=== PATIENT | female | born 1985 | race Caucasian/White ===

== ENCOUNTER 2018-04-15 15:54 | Emergency (ER) | payer SELFPAY ==
[2018-04-15 16:00] VITALS: BP 125/78
--- NOTE | 2018-04-15 16:33 | ER Document Report ---
HPI - HPI Patient complains to provider of: toothache Onset: This afternoon Pain Level: 5 Context: 32 yo female c/o broen tooth today while eating pizza, top right bicuspid. Associated Symptoms: None Exacerbated by: Denies Relieved by: Denies - ROS ROS below otherwise negative: Yes Systems Reviewed and Negative: Yes All other systems reviewed and negative - REPRODUCTIVE Reproductive: DENIES: : Past Medical History - General Information source: Patient - Social History Smoking Status: Current Every Day Smoker Frequency of alcohol use: None Drug Abuse: None Lives with: Family Family History: Reviewed & Not Pertinent - Medical History Medical History: Negative Past Surgical History: Reports: Hx Orthopedic Surgery - right hand, right shoulder - Immunizations Hx Diphtheria, Pertussis, Tetanus Vaccination: Yes Vertical Provider Document - CONSTITUTIONAL Agree With Documented VS: Yes Exam Limitations: No Limitations General Appearance: No Apparent Distress - INFECTION CONTROL TRAVEL OUTSIDE OF THE [place] IN LAST 30 DAYS: No - HEENT Notes: partial broken top bicuspid, minimal ginival inflammation, no abscess Course - Vital Signs Vital signs: Temp Pulse Resp BP Pulse Ox 97.9 F 90 16 125/78 99 04/15/18 15:59 04/15/18 15:59 04/15/18 15:59 04/15/18 15:59 04/15/18 15:59 Discharge - Discharge Clinical Impression: Dental pain and decay Condition: Good Disposition: HOME, SELF-CARE Instructions: Amoxicillin ([facility]), Dentist, Toothache ([facility]), Topical Lidocaine ( [facility]) Additional Instructions: Lidocaine to numb the area Penicillin Motrin Tylenol Return to the emergency room any concerns Prescriptions: Ibuprofen [Motrin 800 mg Tablet] 800 mg PO Q8HP PRN #30 tablet PRN Reason: Amoxicillin Trihydrate [Amoxil 500 mg Capsule] 500 mg PO QID #30 cap Referrals: LOCALMD,NO [NO LOCAL MD] - Follow up as needed
[2018-04-15] MEDS ORDERED: ACETAMINOPHEN 325 MG TABLET PO ONE (16:34)
[2018-04-15] MEDS ORDERED: LIDOCAINE 2% VISCOUS SOLN 20 ML UDCUP PO ONE (16:34)
[2018-04-15] MEDS ORDERED: IBUPROFEN 800 MG TABLET PO ONE (16:34)
== END 2018-04-15 17:18 | disposition home or self-care (01) ==
LOC: ER 15:54
DX: K02.9 Dental caries, unspecified (principal); F17.200 Nicotine dependence, unspecified, uncomplicated
CPT/HCPCS: 99282; J3490

== ENCOUNTER 2018-05-05 09:57 | Emergency (ER) | payer SELFPAY ==
--- NOTE | 2018-05-05 10:18 | ER Document Report ---
ED Medical Screen (RME) - General Chief Complaint: Vaginal Bleeding Stated Complaint: VAGINAL BLEEDING Time Seen by Provider: 05/05/18 10:15 Notes: RAPID MEDICAL EVALUATION DISCLOSURE I have seen this patient as part of a Rapid Medical Evaluation and, if applicable, placed any initially appropriate orders. The patient will be seen and fully evaluated, including a full history and physical exam, by a provider ( in Main ED or Fast Track) when a room becomes available. 32-year-old female here with complaints of vaginal bleeding and lower abdominal cramping over the past few days. She has also had some nausea but no dysuria frequency hesitancy vaginal discharge. She states there is a very good possibility she could be . EXAM Minimal suprapubic and RLQ TTP TRAVEL OUTSIDE OF THE [place] IN LAST 30 DAYS: No - Related Data Allergies/Adverse Reactions: No Known Allergies Allergy (Verified 05/05/18 09:58) Past Medical History Renal/ Medical History: Denies: Hx Peritoneal Dialysis Past Surgical History: Reports: Hx Orthopedic Surgery - right hand, right shoulder - Immunizations Hx Diphtheria, Pertussis, Tetanus Vaccination: Yes Physical Exam - Vital signs Vitals: Temp Pulse Resp BP Pulse Ox 98.5 F 97 16 128/81 H 99 05/05/18 10:08 05/05/18 10:08 05/05/18 10:08 05/05/18 10:08 05/05/18 10:08 Course - Vital Signs Vital signs: Temp Pulse Resp BP Pulse Ox 98.5 F 97 16 128/81 H 99 05/05/18 10:08 05/05/18 10:08 05/05/18 10:08 05/05/18 10:08 05/05/18 10:08
[2018-05-05 11:06] LABS: ABSOLUTE EOSINOPHILS # (AUTO) 0.1 10^3/uL (0.0-0.6); ABSOLUTE LYMPHOCYTES (AUTO) 3.4 10^3/uL (0.5-4.7); ABSOLUTE MONOCYTES (AUTO) 0.6 10^3/uL (0.1-1.4); ABSOLUTE NEUT (AUTO) 7.8 10^3/uL (1.7-8.2); BASOPHILS % (AUTO) 0.4 % (0-2); EOSINOPHILS % (AUTO) 0.9 % (0-6); HEMATOCRIT 45.1 % (36.0-47.0); HEMOGLOBIN 15.4 g/dL (12.0-15.5); LYMPHOCYTES % (AUTO) 28.7 % (13-45); MEAN CORPUSCULAR HEMOGLOBIN 31.4 pg (27.0-33.4); MEAN CORPUSCULAR HGB CONC 34.1 g/dL (32.0-36.0); MEAN CORPUSCULAR VOLUME 92 fl (80-97); MONOCYTES % (AUTO) 4.7 % (3-13); PLATELET COUNT 327 10^3/uL (150-450); RED CELL DISTRIBUTION WIDTH 13.1 % (11.5-14.0); SEGMENTED NEUTROPHILS % (AUTO) 65.3 % (42-78); TOTAL CELLS COUNTED % (AUTO) 100 %; WHITE BLOOD COUNT 11.9 10^3/uL (4.0-10.5)
--- NOTE | 2018-05-05 11:07 | ER Document Report ---
ED GI/ - General Chief Complaint: Vaginal Bleeding Stated Complaint: VAGINAL BLEEDING Time Seen by Provider: 05/05/18 10:15 Mode of Arrival: Ambulatory Information source: Patient Notes: Vaginal bleeding since April 20. She thought it was a normal menses when it started but it is persisted for this long and she is concerned that she might be . She does not do the home test. No vaginal discharge or odor, no history of STI's, no new sexual partner. G0. No dysuria frequency or urgency. No fever or chills. No pain at this time. TRAVEL OUTSIDE OF THE [place] IN LAST 30 DAYS: No - Related Data Allergies/Adverse Reactions: No Known Allergies Allergy (Verified 05/05/18 09:58) Past Medical History - General Information source: Patient - Social History Smoking Status: Current Every Day Smoker Chew tobacco use (# tins/day): No Frequency of alcohol use: None Drug Abuse: None Lives with: Spouse/Significant other Family History: Reviewed & Not Pertinent Patient has suicidal ideation: No Patient has homicidal ideation: No Renal/ Medical History: Denies: Hx Peritoneal Dialysis Past Surgical History: Reports: Hx Orthopedic Surgery - right hand, right shoulder - Immunizations Hx Diphtheria, Pertussis, Tetanus Vaccination: Yes Review of Systems - Review of Systems Constitutional: No symptoms reported EENT: No symptoms reported Cardiovascular: No symptoms reported Respiratory: No symptoms reported Gastrointestinal: No symptoms reported Genitourinary: No symptoms reported Female Genitourinary: See HPI Musculoskeletal: No symptoms reported Skin: No symptoms reported Hematologic/Lymphatic: No symptoms reported Neurological/Psychological: No symptoms reported Physical Exam - Vital signs Vitals: Temp Pulse Resp BP Pulse Ox 98.5 F 97 16 128/81 H 99 05/05/18 10:08 05/05/18 10:08 05/05/18 10:08 05/05/18 10:08 05/05/18 10:08 Interpretation: Normal - General General appearance: Appears well, Alert - HEENT Head: Normocephalic, Atraumatic Eyes: Normal Conjunctiva: Normal Pupils: PERRL - Respiratory Respiratory status: No respiratory distress Chest status: Nontender Breath sounds: Normal Chest palpation: Normal - Cardiovascular Rhythm: Regular Heart sounds: Normal auscultation Murmur: No - Abdominal Inspection: Normal Distension: No distension Bowel sounds: Normal Tenderness: Nontender. No: Tender Organomegaly: No organomegaly - Genitourinary External exam: Normal Speculum exam: Cervix closed Vaginal bleeding: Mild - Old blood Bimanuel exam: No: Cervical motion tender, Adnexal tenderness Notes: smells like BV - Back Back: Normal, Nontender. No: CVA tenderness - Extremities General upper extremity: Normal inspection, Nontender, Normal color, Normal ROM , Normal temperature General lower extremity: Normal inspection, Nontender, Normal color, Normal ROM , Normal temperature, Normal weight bearing. No: Ketan's sign - Neurological Neuro grossly intact: Yes Cognition: Normal Orientation: AAOx4 Custer Coma Scale Eye Opening: Spontaneous Alena Coma Scale Verbal: Oriented Custer Coma Scale Motor: Obeys Commands Alena Coma Scale Total: 15 Speech: Normal Motor strength normal: LUE, RUE, LLE, RLE Sensory: Normal - Psychological Associated symptoms: Normal affect, Normal mood - Skin Skin Temperature: Warm Skin Moisture: Dry Skin Color: Normal Skin irregularity: negative: Rash Course - Re-evaluation Re-evalutation: 05/05/18 13:[address] Brooks is consult for the bacterial vaginosis and he said use Clindagel, spoken with the patient about all of the lab tests and she understands to get her quantitative test redrawn in 2 days and to return for any worsening of the symptoms. Blood type is O+, no urinary tract infection, CBC is normal, quantitative is 274, bacterial vaginosis on the wet prep, gonorrhea and chlamydia is negative. Her sounds does not show an IUP and bilateral ovarian cysts which are complex and the patient understands this. 05/05/18 13:32 05/05/18 13:32 - Vital Signs Vital signs: Temp Pulse Resp BP Pulse Ox 97.7 F 78 16 118/73 98 05/05/18 13:39 05/05/18 13:39 05/05/18 13:39 05/05/18 13:39 05/05/18 13:39 - Laboratory Result Diagrams: 05/05/18 10:40 05/05/18 10:40 Laboratory results interpreted by me: 05/05/18 05/05/18 05/05/18 10:40 10:40 10:40 WBC 11.9 H BUN 6 L Beta HCG, Quant Urine Blood LARGE H Urine HCG, Qual POSITIVE H 05/05/18 10:40 WBC BUN Beta HCG, Quant 274.15 H Urine Blood Urine HCG, Qual Discharge - Discharge Clinical Impression: Early , Vaginal bleeding, Bilateral ovarian cysts, Bacterial vaginosis Condition: Good Disposition: HOME, SELF-CARE Instructions: Bleeding During Early ([facility]), Clindamycin ([facility]), [facility], Ovarian Cyst ([facility]), Vaginosis, Bacterial ([facility]), [facility] ([facility]) Additional Instructions: You will need to get her blood redrawn in 48 hours. If the hCG level is going up you are still , if the hCG is going down this bleeding is a miscarriage. See the health department or [facility] for follow-up Return to the emergency room for increased cramping , fever, pain or any concerns. Prescriptions: Clindamycin Phosphate [Clindamax Cream] 1 applic VG QHS 7 Days #1 tub Forms: Follow-Up Laboratory Testing Referrals: REGINALD BROOKS MD [ACTIVE STAFF] - Follow up as needed
[2018-05-05 11:15] LABS: APPEARANCE,URINE CLEAR; BILIRUBIN,URINE NEGATIVE (NEGATIVE); COLOR,URINE STRAW; GLUCOSE, URINE NEGATIVE (NEGATIVE); KETONES,URINE NEGATIVE (NEGATIVE); LEUKOCYTE ESTERASE,URINE NEGATIVE (NEGATIVE); NITRITE,URINE NEGATIVE (NEGATIVE); PROTEIN,URINE NEGATIVE (NEGATIVE); URINE SPECIFIC GRAVITY 1.006; UROBILINOGEN,URINE NEGATIVE mg/dL (<2.0)
[2018-05-05 11:31] LABS: ANION GAP 10 (5-19); BLOOD UREA NITROGEN 6 mg/dL (7-20); CALCIUM 9.6 mg/dL (8.4-10.2); CARBON DIOXIDE 29 mmol/L (22-30); CHLORIDE 103 mmol/L (98-107); GLUCOSE 85 mg/dL (75-110)
[2018-05-05 12:03] LABS: BACTERIA (WET MOUNT) 3+ BACTERIA SEEN; EPITHELIALS (WET MOUNT) 3+ EPITHELIALS SEEN; RBCS (WET MOUNT) FEW RBCS SEEN; T.VAGINALIS (WET MOUNT) NO TRICHOMONAS SEEN; WBCS (WET MOUNT) RARE WBCS SEEN; YEAST (WET MOUNT) NO YEAST SEEN
--- NOTE | 2018-05-05 13:01 | RADIOLOGY REPORT (SQ) ---
EXAM DESCRIPTION: U/S OB TRANSVAGINAL W/O DOP COMPLETED DATE/TIME: 05/05/2018 12:48 pm REASON FOR STUDY: and bleeding COMPARISON: None TECHNIQUE: Transvaginal static and realtime grayscale images acquired of the pelvis. Additional jevon cted spectral and color Doppler images recorded. All images stored on PACs. BHC LIMITATIONS: None. FINDINGS: UTERUS: No visualized intrauterine . Endometrial stripe 2 mm. RIGHT ADNEXA: Normal size. Multiple simple benign appearing cysts. Largest 2.3 cm. Complex cystic change - 2.3 cm. No adnexal free fluid. LEFT ADNEXA: Normal ovary with normal vascular flow. No adnexal free fluid. 2.2 cm complex cyst. FREE FLUID: None. OTHER: No other significant finding. IMPRESSION: NO VISUALIZED INTRA- OR EXTRAUTERINE . bHCG LEVEL TOO LOW TO EXPECT VISUALIZATION OF . ECTOPIC CANNOT BE EXCLUDED. TECHNICAL DOCUMENTATION: JOB ID: [id number] [employer]- All Rights Reserved Reading location - IP/workstation name: [email or web address]
[2018-05-05 13:03] LABS: CHLAM PCR NOT DETECTED (NOT DETECT); GON PCR NOT DETECTED (NOT DETECT)
[2018-05-05 13:41] VITALS: BP 118/73
== END 2018-05-05 13:42 | disposition home or self-care (01) ==
LOC: ER 09:57
DX: O46.90 Antepartum hemorrhage, unspecified, unspecified trimester (principal); O23.599 Infection of other part of genital tract in pregnancy, unspecified trimester; B96.89 Other specified bacterial agents as the cause of diseases classified elsewhere; O34.80 Maternal care for other abnormalities of pelvic organs, unspecified trimester; N83.202 Unspecified ovarian cyst, left side; N83.201 Unspecified ovarian cyst, right side; O99.330 Smoking (tobacco) complicating pregnancy, unspecified trimester; Z3A.00 Weeks of gestation of pregnancy not specified
CPT/HCPCS: 36415; 76817; 80048; 81001; 81025; 84702; 85025; 86900; 86901; 87210; 87491; 87591; 99284

== ENCOUNTER → 2018-05-07 | Outpatient (CLI) | payer SELFPAY | LOC: LAB 15:35 | PROVIDERS: ATTEND Nurse Practitioner Family | DX: O20.9 Hemorrhage in early pregnancy, unspecified (principal); Z3A.00 Weeks of gestation of pregnancy not specified | CPT/HCPCS: 36415; 84702 ==

== ENCOUNTER 2018-06-10 14:24 | Emergency (ER) | payer MEDICAID ==
[2018-06-10 14:44] VITALS: BP 108/63
== END 2018-06-10 15:10 | disposition left against medical advice (07) ==
LOC: ER 14:24
DX: Z53.21 Procedure and treatment not carried out due to patient leaving prior to being seen by health care provider (principal)

== ENCOUNTER 2018-06-12 15:11 | Emergency (ER) | payer MEDICAID ==
[2018-06-12 15:55] VITALS: BP 120/81
--- NOTE | 2018-06-12 17:07 | ER Document Report ---
ED Medical Screen (RME) - General Chief Complaint: Vag Bleeding, +preg <12wks Stated Complaint: VAGINAL BLEEDING Time Seen by Provider: 06/12/18 16:59 Mode of Arrival: Ambulatory Information source: Patient TRAVEL OUTSIDE OF THE [place] IN LAST 30 DAYS: No - HPI Patient complains to provider of: Vaginal bleeding Onset: Other - This is a 32-year-old woman 9-1/2 weeks who presents for evaluation of painless vaginal bleeding which started this morning. She subsequently soaked 3 pads without any obvious clots there was some faint cramping associated with it. This patient has not been seen by her catering associate yet and has no other sound yet to demonstrate wearing her is, she has no known history of as she says this is her first . She has no known bleeding problems. She is a daily cigarette smoker. She never had any trauma to the abdomen or other injury that she can call. - Related Data Allergies/Adverse Reactions: No Known Allergies Allergy (Verified 05/05/18 09:58) Past Medical History - Social History Chew tobacco use (# tins/day): No Frequency of alcohol use: None Drug Abuse: None Renal/ Medical History: Denies: Hx Peritoneal Dialysis Past Surgical History: Reports: Hx Orthopedic Surgery - right hand, right shoulder - Immunizations Hx Diphtheria, Pertussis, Tetanus Vaccination: Yes Physical Exam - Vital signs Vitals: Temp Pulse Resp BP Pulse Ox 98.6 F 71 18 120/81 96 06/12/18 15:53 06/12/18 15:53 06/12/18 15:53 06/12/18 15:53 06/12/18 15:53 Course - Re-evaluation Re-evalutation: 06/12/18 17:06 This is a 32-year-old female presents for evaluation of painless vaginal bleeding in the setting of being diet half weeks . Currently her is in an online location that she has not seen her OB doctor yet for an ultrasound. She is scheduled to see her OB doctor Wednesday. Her blood type is O+. We will obtain urinalysis, will require a pelvic examination and transvaginal ultrasound to assess location of the fetus. If patient has viable intrauterine would be reasonable for her to follow-up on Wednesday as previously scheduled. - Vital Signs Vital signs: Temp Pulse Resp BP Pulse Ox 98.6 F 71 18 120/81 96 06/12/18 15:53 06/12/18 15:53 06/12/18 15:53 06/12/18 15:53 06/12/18 15:53 Doctor's Discharge - Discharge Referrals: ROHIT MILLER, [employer] [Primary Care Provider] - Follow up as needed
--- NOTE | 2018-06-12 17:41 | RADIOLOGY REPORT (SQ) ---
EXAM DESCRIPTION: U/S OB TRANSVAGINAL W/O DOP COMPLETED DATE/TIME: 06/12/2018 5:30 pm REASON FOR STUDY: of unknown location COMPARISON: None. TECHNIQUE: Dynamic and static grayscale images acquired of the pelvis via transvaginal approach and recorded on PACS. Additional selected color Doppler and spectral images recorded. LIMITATIONS: None. FINDINGS: UTERUS: Contour normal. No IUP identified. ENDOMETRIAL STRIPE: No focal or generalized thickening. No masses. CERVIX: Tiny nabothian cysts. RIGHT OVARY AND DOPPLER: Normal size. 3.2 cm complex right ovarian cyst. Normal arterial vascular f low without evidence for torsion. LEFT OVARY AND DOPPLER: Ovary not visualized. FREE FLUID: None noted. OTHER: No other significant finding. MEASUREMENTS: UTERUS: 7.3 x 4.3 x 3.0 cm ENDOMETRIAL STRIPE: 4 mm RIGHT OVARY: 3.5 x 3.4 x 4.3 cm LEFT OVARY: Not visualized. IMPRESSION: No IUP identified.3.2 cm complex right ovarian cyst. Normal arterial vascular flow witho ut evidence for torsion. Nonvisualized left ovary. TECHNICAL DOCUMENTATION: JOB ID: [id number] [place]-[id number] 2010 [employer]- All Rights Reserved Rev-03/04 Reading location - IP/workstation name: [email or web address]
[2018-06-12 17:48] LABS: APPEARANCE,URINE CLOUDY; BILIRUBIN,URINE NEGATIVE (NEGATIVE); COLOR,URINE AMBER; GLUCOSE, URINE NEGATIVE (NEGATIVE); KETONES,URINE NEGATIVE (NEGATIVE); LEUKOCYTE ESTERASE,URINE NEGATIVE (NEGATIVE); NITRITE,URINE NEGATIVE (NEGATIVE); PROTEIN,URINE NEGATIVE (NEGATIVE); URINE SPECIFIC GRAVITY 1.012; UROBILINOGEN,URINE NEGATIVE mg/dL (<2.0)
--- NOTE | 2018-06-12 18:18 | ER Document Report ---
ED General - General Chief Complaint: Vag Bleeding, +preg <12wks Stated Complaint: VAGINAL BLEEDING Time Seen by Provider: 06/12/18 16:59 Mode of Arrival: Ambulatory TRAVEL OUTSIDE OF THE [place] IN LAST 30 DAYS: No - HPI Notes: Patient is a 32-year-old female approximately 9/2 weeks without confirmation who presents to the ED complaining of night painless vaginal bleeding over the last 1 day. Patient was evaluated in the middle of April and was noted to have a positive hCG quantitative at 274 and 2 days later at 359. Patient states that at that time she was bleeding as well. Patient states that she has not had any cramping. She has been eating and drinking without any difficulties. She is urinating normally and having normal bowel movements. She is no concern of STD or STI. Patient states that she had a previous miscarriage early in the years ago. She denies any drug allergies. Denies any headache, fever, URI, sore throat, chest pain, palpitations, syncope , cough, shortness of breath, wheeze, dyspnea, abdominal pain, nausea/vomiting/ diarrhea, urinary retention, dysuria, hematuria, or rash. - Related Data Allergies/Adverse Reactions: No Known Allergies Allergy (Verified 05/05/18 09:58) Past Medical History - General Information source: Patient - Social History Smoking Status: Current Every Day Smoker Chew tobacco use (# tins/day): No Frequency of alcohol use: None Drug Abuse: None Family History: Reviewed & Not Pertinent Patient has suicidal ideation: No Patient has homicidal ideation: No Renal/ Medical History: Denies: Hx Peritoneal Dialysis Past Surgical History: Reports: Hx Orthopedic Surgery - right hand, right shoulder - Immunizations Hx Diphtheria, Pertussis, Tetanus Vaccination: Yes Review of Systems - Review of Systems -: Yes All other systems reviewed and negative Physical Exam - Vital signs Vitals: Temp Pulse Resp BP Pulse Ox 98.6 F 71 18 120/81 96 06/12/18 15:53 06/12/18 15:53 06/12/18 15:53 06/12/18 15:53 06/12/18 15:53 - Notes Notes: PHYSICAL EXAMINATION: GENERAL: Well-appearing, well-nourished and in no acute distress. LUNGS: Breath sounds clear to auscultation bilaterally and equal. No wheezes rales or rhonchi. HEART: Regular rate and rhythm without murmurs, rubs, gallops. ABDOMEN: Soft, nontender, nondistended abdomen. No guarding, no rebound. No masses appreciated. Normal bowel sounds present. No CVA tenderness bilaterally. : deferred, pt declined. Musculoskeletal: FROM to passive/active. Strength 5+/5. Extremities: No cyanosis, clubbing, or edema b/l. Peripheral pulses 2+. Capillary refill less than 3 seconds. NEUROLOGICAL: Normal speech, normal gait. PSYCH: Normal mood, normal affect. SKIN: Warm, Dry, normal turgor, no rashes or lesions noted. Course - Re-evaluation Re-evalutation: 06/12/18 18:51 Patient is an afebrile, well-hydrated, 32-year-old female who presents to the ED with vaginal bleeding and a negative on UA w/o evidence of on TVUS, suspect miscarriage. Pt does have an ovarian cyst, right. Pt did become emotional when I told her the unfortunate results, but is understanding. Vitals are acceptable without any significant tachycardia, tachypnea, or hypoxia. PE is otherwise unremarkable. Pt did decline pelvic at this time. UA/HCG negative. I did order a HCG quant which is still pending. Pt did not want to stay for that result. Patient is nontoxic-appearing is tolerating p.o. without any difficulties. See TVUS result. No other labs or imaging warranted at this time based on H&P. Low suspicion/risk for acute appendicitis, bowel obstruction, acute cholecystitis, acute cholangitis, perforated diverticulitis, incarcerated hernia, pancreatitis, perforated ulcer, peritonitis, sepsis, pelvic inflammatory disease, ectopic , tubo- ovarian abscess, ovarian torsion, evidence of retained parts of conception, or other systemic emergent condition at this time. Patient is aware that her condition can change from initial presentation and she needs to monitor symptoms closely and seek medical attention if any acute changes. Conservative measures otherwise for symptoms. Recheck with your PCM/OBGYN in 3-5 days. Return to the ED with any worsening/concerning symptoms otherwise as reviewed in discharge. Patient is in agreement. - Vital Signs Vital signs: Temp Pulse Resp BP Pulse Ox 98.6 F 71 18 120/81 96 06/12/18 15:53 06/12/18 15:53 06/12/18 15:53 06/12/18 15:53 06/12/18 15:53 - Laboratory Laboratory results interpreted by me: 06/12/18 17:10 Urine Blood LARGE H Urine Ascorbic Acid 40 H Discharge - Discharge Clinical Impression: Right ovarian cyst, Miscarriage, Vaginal bleeding Condition: Stable Disposition: HOME, SELF-CARE Instructions: Miscarriage ([facility]), Ovarian Cyst ([facility]) Additional Instructions: Maintain fluid intake Proper hygenic technique Keep the skin clean Safe sexual practices with condoms everytime Tylenol/ibuprofen as needed Return immediately if symptoms worsen F/u with your PCM/OBGYN in 3-5 days for a recheck Return to the ED with any development of ROGERS/fever, trouble with vision, eye redness, worsening pain, urethral discharge, urinary retention, blood in the urine, flank pain, abdominal pain, n/v, Chest Pain, worsening bleeding, shortness of breath, joint pains, trouble breathing, or any other worsening/ concerning symptoms as needed otherwise. Referrals: [facility] [Provider Group] - Follow up as needed
== END 2018-06-12 18:30 | disposition home or self-care (01) ==
LOC: ER 15:11
DX: O03.9 Complete or unspecified spontaneous abortion without complication (principal); N83.201 Unspecified ovarian cyst, right side; F17.200 Nicotine dependence, unspecified, uncomplicated
CPT/HCPCS: 36415; 76817; 81001; 81025; 84702; 99284